=== PATIENT | male | born 1940 | race African-American/Black ===

== ENCOUNTER 2017-10-15 00:01 | Emergency (ER) | payer MEDICARE ==
[~2017-10-15] VITALS: Ht 185.4 cm; Wt 72.6 kg
[2017-10-15 00:10] VITALS: BP 132/82
[2017-10-15] MEDS ORDERED: Piperacillin/Tazobactam 4.5 GM in NS 110 ML IVPB ONE (00:15)
[2017-10-15] MEDS ORDERED: NS 1000ml 2,200 ML IVLG ONE (00:15)
--- NOTE | 2017-10-15 00:20 | Emergency Room Report ---
History of Present Illness General Chief Complaint: Dyspnea/Respdistress Source: Medical Record Present Illness HPI This 77-year-old male with a history of spinal mass, DVT, diabetes, multiple medical problem, retirement. He presents acutely short of breath. He's been treated for pneumonia for the last 2 weeks with Augmentin. Symptom worsening. He has increasing shortness of breath and congestion. Also with decreased mentation. No nausea no vomiting. No fever or chills. History is from the retirement note. Patient unable to give a history because of his condition. Allergies: Coded Allergies: NSAIDS (NON-STEROIDAL ANTI-INFLAMMA (Verified Allergy, Unknown, 10/15/17) Patient History Past Medical History: see triage record, old chart reviewed Past Surgical History: other Pertinent Family History: none Social History: Denies: smoking Immunizations: other Reviewed Nursing Documentation: PMH: Agreed, PSxH: Agreed Nursing Documentation-PMH Hx Hypertension: Yes - hyperlipidemia Hx Diabetes: Yes - dm type 2 Review of Systems Constitutional: Reports: weakness Eye: Denies: eye pain, blurred vision ENT: Denies: ear pain, nose congestion, throat swelling Respiratory: Reports: cough, shortness of breath Cardiovascular: Denies: chest pain, palpitations Gastrointestinal: Denies: abdominal pain, diarrhea, nausea, vomiting Musculoskeletal: Denies: back pain, joint pain Skin: Denies: rash Neurological: Denies: headache, numbness Endocrine: Denies: increased thirst, increased urine Hematologic/Lymphatic: Denies: easy bruising All Other Systems: negative except mentioned in HPI Physical Exam Vital Signs Date Time Temp Pulse Resp B/P (MAP) Pulse Ox O2 Delivery O2 Flow Rate FiO2 10/14/17 23:59 103.3 97 24 132/82 100 Non-Rebreather 15.0 vitals with fever Sp02 EP Interpretation: abnormal General Appearance: mild distress, Chronically Ill, Stupor Head: normocephalic, atraumatic Eyes: bilateral eye PERRL, bilateral eye EOMI ENT: hearing grossly normal, dry mucus membranes Neck: full range of motion, supple, no meningismus Respiratory: chest non-tender, respiratory distress, accessory muscle use, crackles Cardiovascular #1: regular rate, rhythm, no murmur Gastrointestinal: normal bowel sounds, non tender, no mass, no organomegaly, no bruit, non-distended Musculoskeletal: back normal, normal range of motion Neurologic: grossly normal Skin: warm/dry Procedures Critical Care Time Critical Care Time Critical care is mandated in this patient who presented with sepsis from pneumonia. Patient require my urgent intervention to attenuate the risks of metabolic collapse which may lead to cardiovascular collapse and . Critical care time is 35 minutes excluding any reportable procedure. Critical care time included evaluation, multiple reevaluation, looking at old charts, interpreting laboratory and diagnostic data, discussing case with patient and family and consultants, and charting. Medical Decision Making Diagnostic Impression: Primary Impression: Sepsis Qualified Codes: A41.9 - Sepsis, unspecified organism Additional Impressions: Pneumonia Qualified Codes: J18.1 - Lobar pneumonia, unspecified organism Encephalopathy acute Anemia Qualified Codes: D64.9 - Anemia, unspecified CHF (congestive heart failure) Qualified Codes: I50.9 - Heart failure, unspecified CKD (chronic kidney disease), stage IV ER Course Patient presents with acute encephalopathy secondary to sepsis from pneumonia. He actually more alert after IV fluid. Antibiotic started. is elevated infiltrates> Patient is stable for transfer. Sepsis reevaluation Time: 1:45 AM Vitals: Temperature 100, pulse 93, blood pressure 110/70, pulse ox 100 percent 4 L., Respiratory rate 22 Mental Status: More awake and responsive Cardiovascular: Regular in rhythm Respiratory: Left lower lobe crackles Abdomen: Soft Extremity: No edema Skin no mottling Laboratory Tests Test 10/15/17 00:41 10/15/17 00:45 White Blood Count 13.0 K/UL (4.8-10.8) H Red Blood Count 3.89 M/UL (4.70-6.10) L Hemoglobin 10.1 G/DL (14.2-18.0) L Hematocrit 32.1 % (42.0-52.0) L Mean Corpuscular Volume 82 FL (80-99) Mean Corpuscular Hemoglobin 25.9 PG (27.0-31.0) L Mean Corpuscular Hemoglobin Concent 31.4 G/DL (32.0-36.0) L Red Cell Distribution Width 13.7 % (11.6-14.8) Platelet Count 410 K/UL (150-450) Mean Platelet Volume 6.0 FL (6.5-10.1) L Neutrophils (%) (Auto) % (45.0-75.0) Lymphocytes (%) (Auto) % (20.0-45.0) Monocytes (%) (Auto) % (1.0-10.0) Eosinophils (%) (Auto) % (0.0-3.0) Basophils (%) (Auto) % (0.0-2.0) Prothrombin Time 26.6 SEC (9.30-11.50) H Prothromb Time International Ratio 2.5 (0.9-1.1) H Activated Partial Thromboplast Time 46 SEC (23-33) H Sodium Level 135 MMOL/L (136-145) L Potassium Level 4.0 MMOL/L (3.5-5.1) Chloride Level 104 MMOL/L (98-107) Carbon Dioxide Level 21 MMOL/L (21-32) Anion Gap 10 mmol/L (5-15) Blood Urea Nitrogen 49 mg/dL (7-18) H Creatinine 2.9 MG/DL (0.55-1.30) H Estimat Glomerular Filtration Rate mL/min (>60) Glucose Level 283 MG/DL (74-106) H Lactic Acid Level 1.70 mmol/L (0.66-2.22) Calcium Level 9.4 MG/DL (8.5-10.1) Total Bilirubin 0.6 MG/DL (0.2-1.0) Aspartate Amino Transf (AST/SGOT) 38 U/L (15-37) H Alanine Aminotransferase (ALT/SGPT) 40 U/L (12-78) Alkaline Phosphatase 177 U/L (46-116) H Total Creatine Kinase 111 U/L (26-308) Creatine Kinase MB 1.5 NG/ML (0.0-3.6) Creatine Kinase MB Relative Index 1.3 Troponin I 0.038 ng/mL (0.000-0.056) Pro-B-Type Natriuretic Peptide 58330 pg/mL (0-125) H Total Protein 7.2 G/DL (6.4-8.2) Albumin 1.2 G/DL (3.4-5.0) L Globulin 6.0 g/dL Albumin/Globulin Ratio 0.2 (1.0-2.7) L Arterial Blood pH 7.505 (7.350-7.450) Arterial Blood Partial Pressure CO2 26.2 mmHg (35.0-45.0) L Arterial Blood Partial Pressure O2 225.2 mmHg (75.0-100.0) H Arterial Blood HCO3 20.2 mmol/L (22.0-26.0) L Arterial Blood Oxygen Saturation 99.2 % (92.0-98.0) H Arterial Blood Base Excess -1.6 Jim Test Positive Lab Results Impression labs with elevated wbc and bnp EKG Diagnostic Results Rate: tachycardiac Rhythm: NSR ST Segments: other - NSST changes Rhythm Strip Diag. Results Rhythm Strip Time: 00:34 EP Interpretation: yes Rate: 94 Rhythm: NSR, no PVC's, no ectopy Chest X-Ray Diagnostic Results Chest X-Ray Diagnostic Results : Chest X-Ray Ordered: Yes # of Views/Limited/Complete: 1 View Indication: Shortness of Breath EP Interpretation: Yes Interpretation: no effusion, no pneumothorax, other - inferior HIMANSHU infiltrate Impression: Other - HIMANSHU infiltrate Electronically Signed by: Chepe Judd MD Last Vital Signs Date Time Temp Pulse Resp B/P (MAP) Pulse Ox O2 Delivery O2 Flow Rate FiO2 10/14/17 23:59 103.3 97 24 132/82 100 Non-Rebreather 15.0 Status: improved Disposition: XFER SHT-TRM HOSP Condition: Stable CHEPE JUDD M.D. Oct 15, 2017 00:20
[2017-10-15] MEDS ORDERED: Zosyn 4.5gm inj ONE (00:45)
[2017-10-15 01:03] LABS: HEMATOCRIT 32.1 % (42.0-52.0); HEMOGLOBIN 10.1 G/DL (14.2-18.0); MEAN CORPUSCULAR VOLUME 82 FL (80-99); PLATELET COUNT 410 K/UL (150-450); RED BLOOD COUNT 3.89 M/UL (4.70-6.10); RED CELL DISTRIBUTION WIDTH 13.7 % (11.6-14.8)
[2017-10-15 01:16] LABS: ANION GAP 10 mmol/L (5-15); BLOOD UREA NITROGEN 49 mg/dL (7-18); CALCIUM 9.4 MG/DL (8.5-10.1); CARBON DIOXIDE 21 MMOL/L (21-32); CHLORIDE 104 MMOL/L (98-107); CREATININE 2.9 MG/DL (0.55-1.30); SODIUM 135 MMOL/L (136-145)
[2017-10-15 01:22] LABS: INR 2.5 (0.9-1.1)
[2017-10-15 01:28] LABS: ALANINE AMINOTRANSFERASE 40 U/L (12-78); ALBUMIN 1.2 G/DL (3.4-5.0); ALBUMIN/GLOBULIN RATIO 0.2 (1.0-2.7); ALKALINE PHOSPHATASE 177 U/L (46-116); ASPARTATE AMINO TRANSFERASE 38 U/L (15-37); BILIRUBIN,TOTAL 0.6 MG/DL (0.2-1.0); CKMB 1.5 NG/ML (0.0-3.6); CREATINE KINASE 111 U/L (26-308)
[2017-10-15 02:00] VITALS: BP 109/58
[2017-10-15 02:32] LABS: BILIRUBIN, URINE NEGATIVE (NEGATIVE); GLUCOSE, URINE (UA) 2+ (NEGATIVE); KETONES,URINE NEGATIVE (NEGATIVE); LEUKOCYTE ESTERASE ,URINE 2+ (NEGATIVE); NITRITE,URINE NEGATIVE (NEGATIVE); PH,URINE 5 (4.5-8.0); PROTEIN,URINE 3+ (NEGATIVE); UROBILINOGEN,URINE NORMAL MG/DL (0.0-1.0)
[2017-10-15 02:39] LABS: APPEARANCE,URINE SLIGHTLY CLOUDY; COLOR,URINE YELLOW
[2017-10-15 03:45] VITALS: BP 116/97
[2017-10-15 04:30] VITALS: BP 96/56
[2017-10-15 04:45] VITALS: BP 96/56
--- NOTE | 2017-10-15 11:15 | Diagnostic Imaging Report ---
Indication: Dyspnea Comparison: None A single view chest radiograph was obtained. Findings: Pulmonary infiltrate versus asymmetric edema noted within the left mid lung. Some evidence of vascular congestion is present. The tip of the PICC line is in the SVC. The heart is borderline enlarged. IMPRESSION: Left pulmonary infiltrate versus asymmetric pulmonary edema. Please correlate clinically
--- NOTE | 2017-10-15 15:41 | Cardiology Report ---
APPROVED REPORT EKG Measurement Heart [id number] Sinus tachycardia Left axis deviation Moderate voltage criteria for LVH, may be normal variant T wave abnormality, consider lateral ischemia Abnormal ECG
== END 2017-10-15 04:30 | disposition short-term general hospital (02) ==
LOC: EDBD 00:01 → EMR 00:05
DX: A41.9 Sepsis, unspecified organism (principal); J18.9 Pneumonia, unspecified organism; E11.9 Type 2 diabetes mellitus without complications; E78.5 Hyperlipidemia, unspecified; G93.40 Encephalopathy, unspecified; D64.9 Anemia, unspecified; I13.0 Hypertensive heart and chronic kidney disease with heart failure and stage 1 through stage 4 chronic kidney disease, or unspecified chronic kidney disease; I50.9 Heart failure, unspecified; N18.4 Chronic kidney disease, stage 4 (severe)
CPT/HCPCS: 36415; 36600; 71045; 80053; 81003; 82550; 82553; 82803; 83605; 83880; 84484; 85025; 85610; 85730; 86710; 87040; 87086; 87181; 93005; 96361; 96365; 96366; 99291; J1956; J2543